=== PATIENT | female | born 1955 | race Two or more races ===

== ENCOUNTER 2017-07-08 13:23 | Emergency (ER) | payer OTHER ==
[~2017-07-08] VITALS: Ht 157.5 cm; Wt 64.4 kg
[2017-07-08] MEDS ORDERED: ZITHROMAX500 MG PO (19:17)
[2017-07-08] MEDS ORDERED: IPRAT-ALBUT 0.5-3 ML IH (19:17)
[2017-07-08] MEDS ORDERED: PROMETH-CODEIN 65 ML PO (19:17)
[2017-07-08] MEDS ORDERED: MUCINEX DM ER1 EAC1 PO (19:17)
[2017-07-08] MEDS ORDERED: BUDESONIDE0.5 MG/2 M IH (19:17)
== END 2017-07-08 20:16 | disposition home or self-care (01) ==
LOC: ER 13:23
DX: J06.9 Acute upper respiratory infection, unspecified (principal); J32.8 Other chronic sinusitis

== ENCOUNTER 2017-07-26 09:18 | Outpatient (CLI) | payer OTHER ==
[~2017-07-26 09:18] MED LIST: BUDESONIDE0.5 MG/2 M IH; IPRAT-ALBUT 0.5-3 ML IH; MUCINEX DM ER1 EAC1 PO; PROMETH-CODEIN 65 ML PO; ZITHROMAX500 MG PO
== END 2017-07-26 09:30 | disposition home or self-care (01) ==
LOC: RAD 09:18
DX: J45.41 Moderate persistent asthma with (acute) exacerbation (principal); J20.9 Acute bronchitis, unspecified

== ENCOUNTER 2018-01-18 21:56 | Emergency (ER) | payer OTHER ==
[~2018-01-18] VITALS: Ht 157.5 cm; Wt 63.5 kg
== END 2018-01-19 01:18 | disposition home or self-care (01) ==
LOC: ER 21:56
DX: H92.02 Otalgia, left ear (principal)

== ENCOUNTER 2018-04-24 03:45 | Emergency (ER) | payer OTHER ==
[~2018-04-24] VITALS: Ht 167.6 cm; Wt 63.0 kg
== END 2018-04-24 08:48 | disposition home or self-care (01) ==
LOC: ER 03:45
DX: G40.89 Other seizures (principal)

== ENCOUNTER 2018-11-03 10:13 | Emergency (ER) | payer OTHER ==
[~2018-11-03] VITALS: Ht 157.5 cm; Wt 63.5 kg
== END 2018-11-03 11:45 | disposition home or self-care (01) ==
LOC: ER 10:13
DX: J06.9 Acute upper respiratory infection, unspecified (principal)

== ENCOUNTER 2019-01-27 14:10 | Emergency (ER) | payer OTHER ==
[~2019-01-27] VITALS: Ht 157.5 cm; Wt 63.5 kg
[2019-01-27] MEDS ORDERED: CANABIS MEDICINAL (14:51)
== END 2019-01-27 18:36 | disposition home or self-care (01) ==
LOC: ER 14:10
DX: J06.9 Acute upper respiratory infection, unspecified (principal)

== ENCOUNTER 2020-12-29 18:33 | Emergency (ER) | payer OTHER ==
[~2020-12-29] VITALS: Ht 162.6 cm; Wt 65.3 kg
[~2020-12-29 18:33] MED LIST changes: +CANABIS MEDICINAL
== END 2020-12-29 20:22 | disposition home or self-care (01) ==
LOC: ER 18:33
DX: S61.522A Laceration with foreign body of left wrist, initial encounter (principal); W45.8XXA Other foreign body or object entering through skin, initial encounter; Y93.89 Activity, other specified; Y92.89 Other specified places as the place of occurrence of the external cause; Y99.8 Other external cause status

== ENCOUNTER 2021-01-08 13:29 | Emergency (ER) | payer OTHER ==
[~2021-01-08] VITALS: Ht 157.5 cm; Wt 61.2 kg
== END 2021-01-08 15:36 | disposition home or self-care (01) ==
LOC: ER 13:29
DX: Z48.02 Encounter for removal of sutures (principal)

== ENCOUNTER 2021-05-27 09:41 | Outpatient (CLI) | payer OTHER | END 2021-05-27 10:05 | disposition home or self-care (01) | LOC: TOM 09:41 | PROVIDERS: ATTEND Specialist | DX: K57.92 Diverticulitis of intestine, part unspecified, without perforation or abscess without bleeding (principal) ==

== ENCOUNTER 2021-12-01 12:48 | Emergency (ER) | payer OTHER ==
[~2021-12-01] VITALS: Ht 157.5 cm; Wt 60.8 kg
[2021-12-01] MEDS ORDERED: CRESTOR10 MG PO (13:24)
[2021-12-01] MEDS ORDERED: XOPENEX0.63 MG/3 (13:25)
[2021-12-01] MEDS ORDERED: MEDROL4 MG PO (13:25)
[2021-12-01] MEDS ORDERED: PULMICORT1 MG/2 ML IH (13:25)
[2021-12-01] MEDS ORDERED: ZYRTEC10 M3 PO (13:25)
== END 2021-12-01 16:10 | disposition home or self-care (01) ==
LOC: ER 12:48
DX: J45.901 Unspecified asthma with (acute) exacerbation (principal)

== ENCOUNTER 2021-12-26 20:48 | Emergency (ER) | payer OTHER ==
[~2021-12-26] VITALS: Ht 157.5 cm; Wt 61.2 kg
[~2021-12-26 20:48] MED LIST changes: +CRESTOR10 MG PO; +MEDROL4 MG PO; +PULMICORT1 MG/2 ML IH; +XOPENEX0.63 MG/3; +ZYRTEC10 M3 PO
[2021-12-26] MEDS ORDERED: ORPHENADRINE C100 MG PO ×2 (22:36→22:59)
== END 2021-12-26 22:58 | disposition home or self-care (01) ==
LOC: ER 20:48
DX: M54.17 Radiculopathy, lumbosacral region (principal); M79.604 Pain in right leg; M54.89 Other dorsalgia

== ENCOUNTER 2023-09-01 08:59 | Outpatient (CLI) | payer OTHER ==
[~2023-09-01 08:59] MED LIST changes: +ORPHENADRINE C100 MG PO
== END 2023-09-01 09:06 | disposition home or self-care (01) ==
LOC: RAD 08:59
PROVIDERS: ATTEND Physical Medicine & Rehabilitation Pain Medicine
DX: M25.561 Pain in right knee (principal); M25.562 Pain in left knee

== ENCOUNTER 2024-06-20 12:44 | Inpatient (IN) | payer OTHER ==
[~2024-06-20] VITALS: Ht 157.5 cm; Wt 61.2 kg
[2024-06-20] MEDS ORDERED: CEFTRIAXONE SODIUM 1,000 MG VIAL IV ONE (13:15)
[2024-06-20] MEDS ORDERED: 0.9 % SODIUM CHLORIDE 1,000 ML IV SCH ×2 (13:15→19:00)
[2024-06-20] MEDS ORDERED: CRESTOR40 MG (13:28)
--- NOTE | 2024-06-20 13:50 | NUR ---
PTE RECIBE PTE FEMENINA DE 68YRS ALERTA CONCIENTE Y TRANQUILA EN COMPANIA DE FAILIAR. PTE ES EVALUADA POR EL ,GUSTAVO QUIEN ORDENA TRATAMIENTO LA CUAL SE EJECUTA. SE MANTIENE BAJO OBSERVACION.
[2024-06-20 14:03] LABS: HEMATOCRIT 42.5 % (36.0-45.00); HEMOGLOBIN 14.4 g/dL (12.0-15.00); MEAN CELL VOLUME 83.7 fL (80.00-100.00); MEAN CORPUSCULAR HEMOGLOBIN 28.4 pg (27.00-32.0); PLATELET COUNT 278 K/uL (150-450); RED BLOOD COUNT 5.07 M/uL (4.00-6.00); RED CELL DISTRIBUTION WIDTH 13.5 % (11.5-14.5)
[2024-06-20 14:21] LABS: CALCIUM 9.1 mg/dL (8.5-10.1); CREATININE SERUM 0.76 mg/dL (0.55-1.02); GFR 75.91; POTASSIUM 3.54 mEq/L (3.5-5.1)
[2024-06-20 14:42] LABS: PARTIAL THROMBOPLASTIN TIME 26.2 SECONDS (22.0-34.0); PROTHROMBIN TIME 10.9 SECONDS (9.0-11.5)
[2024-06-20] MEDS ORDERED: METRONIDAZOLE/SODIUM CHLORIDE 100 ML IV SCH (18:49)
[2024-06-20] MEDS ORDERED: FAMOTIDINE/PF 20 MG in 0.9 % SODIUM CHLORIDE 8 ML IV PUSH SCH (18:49)
[2024-06-20] MEDS ORDERED: CIPROFLOXACIN IN 5 % DEXTROSE 200 ML IV SCH (18:49)
[2024-06-20] MEDS ORDERED: ONDANSETRON HCL 4 MG in 0.9 % SODIUM CHLORIDE 50 ML IV PRN (19:00)
[2024-06-20] MEDS ORDERED: HYOSCYAMINE SULFATE 0.125 MG TAB.SUBL PO ONE (19:00)
[2024-06-20] MEDS ORDERED: MORPHINE SULFATE 4 MG/ML CARTRIDGE IV PRN (19:00)
[2024-06-20] MEDS ORDERED: MORPHINE SULFATE 4 MG/ML CARTRIDGE IV ONE (19:00)
[2024-06-20] MEDS ORDERED: ACETAMINOPHEN 500 MG GEL..CAP PO PRN (19:00)
[2024-06-20 20:27] LABS: C-REACTIVE PROTEIN 11.4 MG/DL (0.00-0.29)
[2024-06-20 21:02] LABS: ob POSITIVE (NEGATIVE)
[2024-06-21 05:30] VITALS: BP 113/60; O2SAT 98
[2024-06-21 08:38] VITALS: BP 145/79; O2SAT 97
[2024-06-21 18:15] VITALS: BP 108/93
[2024-06-22 02:41] VITALS: BP 117/70; O2SAT 96
[2024-06-22 10:45] VITALS: BP 140/82; O2SAT 97
[2024-06-22] MEDS ORDERED: CIPRO500 MG PO (12:01)
[2024-06-22] MEDS ORDERED: FLAGYL375 MG PO (12:01)
[2024-06-22] MEDS ORDERED: CARAFATE1 GM PO (12:02)
== END 2024-06-22 13:11 | disposition home or self-care (01) | DRG 391 ==
LOC: ER 12:46 → SEC-K 20:19 → MEDJ 20:19
PROVIDERS: Emergency Medicine; General Practice; ADMIT Internal Medicine; ATTEND Internal Medicine
PROC: BW21YZZ Computerized Tomography (CT Scan) of Abdomen and Pelvis using Other Contrast (ICD-10-PCS; principal; 2024-06-20)
DX: K52.9 Noninfective gastroenteritis and colitis, unspecified (principal); A41.9 Sepsis, unspecified organism; R65.10 Systemic inflammatory response syndrome (SIRS) of non-infectious origin without acute organ dysfunction